=== PATIENT | male | born 1975 | race Caucasian/White ===

== ENCOUNTER → 2020-03-13 | Outpatient (CLI) | payer OTHER ==
--- NOTE | 2020-03-13 17:10 | KCIC ---
EXAM: MRI LEFT ANKLE/HINDFOOT DATE: 03/13/2020 2:45 PM CLINICAL INDICATION: CHRONIC BILATERAL ACHILLES TENDONITIS-chronic bilateral ankle pain. COMPARISON: None. TECHNIQUE: Multiplanar, multisequence MR imaging of the ankle was performed without IV contrast. FINDINGS: No ankle joint effusion. Tendons: Posterior tibialis, flexor digitorum longus and flexor hallucis longus tendons are intact. Peroneus longus and peroneus brevis tendons are intact. The peroneal tendons are anatomically positioned behind the lateral malleolus. Anterior tibialis, extensor digitorum longus and extensor hallucis longus tendons are intact. The Achilles tendon is thickened at the attachment measuring up to 8 mm without discrete fluid cleft or evidence for tear. Mild retrocalcaneal bursitis. Plantar fascia intact without marginal osteitis or soft tissue swelling. Ligaments: Medial deltoid stabilizers are intact. Lateral collateral stabilizing ligaments including the anterior talofibular ligament are intact. Anterior and posterior tibiofibular ligaments are intact. Ligaments of the Sinus Tarsi are intact. Spaces/Places: Sinus Tarsi within normal limits, without mass lesion or edema pattern. Tarsal tunnel within normal limits, without mass lesion. Articular Cartilage/joint line: Articular cartilage at the tibiotalar joint preserved. Negative osteochondral lesion of the talar dome. Articular cartilage of the subtalar joint grossly preserved. Bone/Bone Marrow: Generally normal bone marrow signal. Negative focal bone marrow replacement or bone marrow edema pattern. Type II navicular. IMPRESSION: 1. Achilles tendon thickening consistent with Achilles tendinosis. No discrete Achilles tendon tendon tear is identified. 2. Mild retrocalcaneal bursitis. Electronically signed by: Marino Lawton MD (03/13/2020 5:07 PM) DEI
--- NOTE | 2020-03-13 17:14 | KCIC ---
EXAM: MRI RIGHT ANKLE/HINDFOOT DATE: 03/13/2020 3:30 PM CLINICAL INDICATION: Chronic right ankle pain. COMPARISON: None. TECHNIQUE: Multiplanar, multisequence MR imaging of the right ankle was performed without IV contrast. FINDINGS: No ankle joint effusion. Tendons: Posterior tibialis, flexor digitorum longus and flexor hallucis longus tendons are intact. Peroneus longus and peroneus brevis tendons are intact. The peroneal tendons are anatomically positioned behind the lateral malleolus. Anterior tibialis, extensor digitorum longus and extensor hallucis longus tendons are intact. Achilles tendon thickening measuring up to 11 mm mild increased heterogeneous signal. No discrete full or partial-thickness tear is identified. Trace retrocalcaneal bursal fluid is likely physiologic. Plantar fascia intact without marginal osteitis or soft tissue swelling. Ligaments: Medial deltoid stabilizers are intact. Lateral collateral stabilizing ligaments including the anterior talofibular ligament are intact. Anterior and posterior tibiofibular ligaments are intact. Ligaments of the Sinus Tarsi are intact. Spaces/Places: Sinus Tarsi within normal limits, without mass lesion or edema pattern. Tarsal tunnel within normal limits, without mass lesion. Articular Cartilage/joint line: Articular cartilage at the tibiotalar joint preserved. Negative osteochondral lesion of the talar dome. Articular cartilage of the subtalar joint is grossly preserved. Bone/Bone Marrow: No fracture or osteonecrosis. Generally normal marrow signal without significant marrow edema. IMPRESSION: Achilles tendon thickening consistent with Achilles tendinosis without discrete tear. Electronically signed by: Marino Lawton MD (03/13/2020 5:11 PM) EDI
== END ==
LOC: KCIC MRI 14:17
PROVIDERS: ATTEND Family Medicine
DX: M77.52 Other enthesopathy of left foot and ankle (principal); M76.62 Achilles tendinitis, left leg; M76.61 Achilles tendinitis, right leg
CPT/HCPCS: 73721